=== PATIENT | male | born 1990 | race Caucasian/White ===

== ENCOUNTER 2024-08-15 01:18 | Emergency (ER) | payer OTHER, SELFPAY ==
[2024-08-15] VITALS (11 sets, daily range): BP systolic 107–131; BP diastolic 62–84
--- NOTE | 2024-08-15 01:46 | ED.GENMED ---
Addendum entered and electronically signed by Franco Pina DO 08/17/24 14:34:
30 minutes critical care time
Original Note:
History of Present Illness
<Chari Stack MD, Resident - Last Filed: 08/15/24 02:13>
General
Chief Complaint: Fainting/Passed Out
Time Seen by Provider: 08/15/24 01:32
History of Present Illness
History of Present Illness:
34-year-old male with no significant past medical history presenting with syncope. Patient notes he was lying in bed tonight when he became nauseous went to the bathroom and remembers passing out and hitting his head against the sink. Patient had
bleeding from his gingiva secondary to trauma to his teeth. Patient has a teeth retainer. Also notes pain and laceration on his chin. Denies headache, neck pain, chest pain, abdominal pain, palpitations, change in BM. Does not recall last tetanus
shot.
Past History
<Chari Stack MD, Resident - Last Filed: 08/15/24 02:13>
Past History
ED Past Medical History: None
ED Past Surgical History: None
Review of Systems
<Chari Stack MD, Resident - Last Filed: 08/15/24 02:13>
Review of Systems
Constitutional: Reports no symptoms
EENT: Reports mouth pain and other (laceration of left chin)
Respiratory: Reports no symptoms
Cardiac: Reports no symptoms
ABD/GI: Reports nausea
: Reports no symptoms
Musculoskeletal: Reports no symptoms
Skin: Reports no symptoms
Neurological: Reports no symptoms
Endocrine: Reports no symptoms
Hematologic/Lymphatic: Reports no symptoms
Psychiatric: Reports no symptoms
Phy Exam
<Chari Stack MD, Resident - Last Filed: 08/15/24 02:13>
Physical Exam
Physical Exam:
GENERAL: Alert, awake, in no apparent distress
EYE: Pupils equal and reactive.
NECK: Supple, no significant adenopathy. No midline tenderness.
ENT: o/p clr, mmm. Loosening of left lower central and lateral incisors. No active bleeding. ~2cm laceration on left chin.
CARDIAC: Regular rate and rhythm.
LUNGS: Clear breath sounds bilaterally, no acute respiratory distress, no wheezes/rales/rhonchi.
ABDOMEN: Soft, without focal tenderness, no r/g, no cvat.
NEUROLOGICAL: Alert and oriented, no focal neuro deficits.
SKIN: Warm and dry, skin intact.
MUSCULOSKELETAL: No edema, well perfused.
PSYCH: Normal and appropriate interaction.
Course
<Chari Stack MD, Resident - Last Filed: 08/15/24 02:13>
Orders/Labs/Results
Orders:
Orders
08/15/24 01:45
Electrocardiogram (*1) Urgent
Reason for Study: Syncope
EKG- Treatment ONCE
08/15/24 01:46
Tetanus/Diphth/Acelpertussis [Adacel] 0.5 ml IM .ONCE ONE
08/15/24 01:50
Complete Blood Count/With Diff Urgent
Comprehensive Metabolic Panel Urgent
0.9% Sodium Chloride 1000 ml [Nss] 1,000 ml IV BOLUS
Ketorolac [Toradol] 30 mg IV NOW STA
Ondansetron Injectable [Zofran] 4 mg IV NOW STA
08/15/24 01:51
CT Head W/o Iv Contrast Urgent
Comment:
Reason For Exam: syncope, trauma to mouth and chin
08/15/24 01:53
CT Facial Bones W/o Iv Contras Urgent
Comment:
Reason For Exam: trauma
08/15/24 01:54
CT Cervical Spine W/o Iv Contr Urgent
Comment:
Reason For Exam: trauma
Morphine Sulfate 4 mg IV NOW STA
08/15/24 02:08
Ampicillin/Sulbactam 3 G [Unasyn] 3 gm 0.9% Sodium Chloride 100 ml [Nss] 100 ml IV NOW
08/15/24 05:50
Electrocardiogram (*1) Urgent
Reason for Study: Syncope
Bedside Glucose- Treatment ONCE
EKG- Treatment ONCE
08/15/24 05:51
0.9% Sodium Chloride 500 ml [Nss] 500 ml IV BOLUS
Ondansetron Injectable [Zofran] 4 mg IV NOW STA
08/15/24 07:12
0.9% Sodium Chloride 1000 ml [Nss] 1,000 ml IV BOLUS
Abnormal Lab Results
08/15/24 08/15/24
01:50 06:07
WBC 13.6 H 10^3/uL
(4.8-10.8)
RBC 4.61 L 10^6/uL
(4.70-6.10)
MPV 11.0 H fL
(7.4-10.4)
Abs Immat Gran (auto) 0.1 H 10^3/uL
(0-0.05)
Absolute Neuts (auto) 10.8 H 10^3/uL
(1.4-6.5)
Absolute Monos (auto) 0.9 H 10^3/uL
(0.1-0.6)
Neutrophils % 79.3 H %
(42.2-75.2)
Lymphocytes % 12.6 L %
(20.5-51.1)
Glucose 131 H mg/dl
(70-99)
Total Bilirubin 2.0 H mg/dl
(0.2-1.3)
ALT 53 H U/L
(0-50)
POC Glucose 134 H mg/dl
(70-99)
08/15/24 01:50
08/15/24 01:50
Vital Signs
Initial and Last Documented VS:
Initial Vital Signs
Temp Pulse Resp BP Pulse Ox
98.1 F 81 20 107/64 99
08/15/24 01:25 08/15/24 01:25 08/15/24 01:25 08/15/24 01:25 08/15/24 01:25
Last Documented Vital Signs
Temp Pulse Resp BP Pulse Ox
98.1 F 108 7 123/70 98
08/15/24 01:25 08/15/24 07:00 08/15/24 07:00 08/15/24 07:00 08/15/24 07:10
<Franco Pina, DO - Last Filed: 08/15/24 07:16>
Orders/Labs/Results
Orders:
Orders
08/15/24 01:45
Electrocardiogram (*1) Urgent
Reason for Study: Syncope
EKG- Treatment ONCE
08/15/24 01:46
Tetanus/Diphth/Acelpertussis [Adacel] 0.5 ml IM .ONCE ONE
08/15/24 01:50
Complete Blood Count/With Diff Urgent
Comprehensive Metabolic Panel Urgent
0.9% Sodium Chloride 1000 ml [Nss] 1,000 ml IV BOLUS
Ketorolac [Toradol] 30 mg IV NOW STA
Ondansetron Injectable [Zofran] 4 mg IV NOW STA
08/15/24 01:51
CT Head W/o Iv Contrast Urgent
Comment:
Reason For Exam: syncope, trauma to mouth and chin
08/15/24 01:53
CT Facial Bones W/o Iv Contras Urgent
Comment:
Reason For Exam: trauma
08/15/24 01:54
CT Cervical Spine W/o Iv Contr Urgent
Comment:
Reason For Exam: trauma
Morphine Sulfate 4 mg IV NOW STA
08/15/24 02:08
Ampicillin/Sulbactam 3 G [Unasyn] 3 gm 0.9% Sodium Chloride 100 ml [Nss] 100 ml IV NOW
08/15/24 05:50
Electrocardiogram (*1) Urgent
Reason for Study: Syncope
Bedside Glucose- Treatment ONCE
EKG- Treatment ONCE
08/15/24 05:51
0.9% Sodium Chloride 500 ml [Nss] 500 ml IV BOLUS
Ondansetron Injectable [Zofran] 4 mg IV NOW STA
08/15/24 07:12
0.9% Sodium Chloride 1000 ml [Nss] 1,000 ml IV BOLUS
Abnormal Lab Results
08/15/24 08/15/24
01:50 06:07
WBC 13.6 H 10^3/uL
(4.8-10.8)
RBC 4.61 L 10^6/uL
(4.70-6.10)
MPV 11.0 H fL
(7.4-10.4)
Abs Immat Gran (auto) 0.1 H 10^3/uL
(0-0.05)
Absolute Neuts (auto) 10.8 H 10^3/uL
(1.4-6.5)
Absolute Monos (auto) 0.9 H 10^3/uL
(0.1-0.6)
Neutrophils % 79.3 H %
(42.2-75.2)
Lymphocytes % 12.6 L %
(20.5-51.1)
Glucose 131 H mg/dl
(70-99)
Total Bilirubin 2.0 H mg/dl
(0.2-1.3)
ALT 53 H U/L
(0-50)
POC Glucose 134 H mg/dl
(70-99)
08/15/24 01:50
08/15/24 01:50
Vital Signs
Initial and Last Documented VS:
Initial Vital Signs
Temp Pulse Resp BP Pulse Ox
98.1 F 81 20 107/64 99
08/15/24 01:25 08/15/24 01:25 08/15/24 01:25 08/15/24 01:25 08/15/24 01:25
Last Documented Vital Signs
Temp Pulse Resp BP Pulse Ox
98.1 F 108 7 123/70 98
08/15/24 01:25 08/15/24 07:00 08/15/24 07:00 08/15/24 07:00 08/15/24 07:10
Procedures
<Franco Pina DO - Last Filed: 08/15/24 07:16>
Laceration Closure
Left Lower Face:
Status of Wound: clean
Description of Wound Edges: sharp
Preparation: cleaned with saline
Anesthesia: 1% Lidocaine with epi
Revision/Debridement: routine- no revision
Wound exploration: explored to base- no FB
Type of Closure: single layer closure
Skin Closure Material: 5-0 prolene
Number of sutures: 5
Additional information:
Completed by resident under my supervision
<Chari Stack MD, Resident - Last Filed: 08/15/24 02:13>
MDM/Problems Addressed
Differential Diagnosis Includes:
Syncope (vasovagal vs hypoglycemic vs cardiac)
Mandibular fracture
MDM/Problems Addressed:
- EKG
- CBC, CMP
- Head CT
- Tetanus shot
- Pain management
- Suture
<Chari Stack MD, Resident - Last Filed: 08/15/24 02:13>
*Critical Care Note
Total Time (30-74mins, 75-104mins- exclusive of procedures): Not Applicable
<Franco Pina DO - Last Filed: 08/15/24 07:16>
Update Note
Update Note:
Update isolated facial trauma, CT noted, reviewed with patient and spouse,
5:45 AM called to room patient got up to ambulate had a second syncopal versus presyncopal event, nauseous, vomited did not strike his head will repeat his EKG and Accu-Chek, had not received any pain meds in the last few hours, this point
7 AM update reviewed previously with the daytime on-call oral surgeon at [facility] recommend transfer to trauma center did review the case with trauma attending at [facility] and facial trauma oral surgeon both have accepted the patient with those
no telemetry beds at [facility], facial trauma surgeon will build to manage patient at [facility] I did discuss with the [facility] trauma attending who accepted the patient as a level 2 trauma
ED Attending Note
<Chari Stack MD, Resident - Last Filed: 08/15/24 02:13>
-
Portions of this chart may have been created with voice recognition software.� Occasional wrong word or��sound alike� substitutions may have occurred due to the inherent limitations of voice recognition software.
<Franco Pina, DO - Last Filed: 08/15/24 07:16>
ED Attending Note
Patient seen and examined by attending physician: Yes
I performed a history and physical exam of patient and discussed management with resident, I reviewed resident's note and agree with documented findings and plan of care.: Yes
ED Attending Note:
Seen with resident examined independently 34-year-old male limited past medical history presents with nausea syncopal event struck his chin on the ground has loose 3 lower front teeth, laceration over his chin,
EKG noted, spouse ill with a similar more severe illness, plan will be labs, imaging of the head C-spine facial bones primary closure update tetanus, antibiotics
Discharge Plan
Departure
Patient Disposition: Acute Care Hospital
Date of Disposition: 08/15/24
Time of Disposition: 07:15
Patient with high blood pressure during this ER visit?: No
Condition: Good
Discharge Problem:
Syncope and collapse, Closed jaw fracture
Referrals:
NONE,* [Family Provider] -
Hospital Transfer
Other hospital: [facility]
I certify that the patient requires transfer: Yes
Discussed case with accepting physician: Trauma facial trauma
Reason for transfer: higher level of care and specialties available
Interventions
Interventions:
*Risk Screen - Suicide Last Done: 08/15/24 01:25
*General Assessment Last Done: 08/15/24 01:25
*Neglect/Abuse Screening Last Done: 08/15/24 01:25
ED- Fall Risk Assessment Last Done: 08/15/24 07:10
*ED COVID-19 Vaccine History Last Done: 08/15/24 01:25
ED- Cardiac Assessment Last Done: 08/15/24 07:10
ED- Neurological Assessment Last Done: 08/15/24 07:10
Discharge Date and Time
Print Language: BENINESE
[2024-08-15] MEDS: NSS 1000 IV ×2 (01:57→07:26)
[2024-08-15 01:58] LABS: % Basophils 0.2 % (0-2); % Eosinophils 0.7 % (0-6); % Immature Granulocytes 0.4 % (0-0.5); % Lymphocytes 12.6 % (20.5-51.1); % Monocytes 6.8 % (1.7-9.3); % Neutrophils 79.3 % (42.2-75.2); Absolute Eosinophils 0.1 10^3/uL (0-0.7); Absolute Immature Granulocytes 0.1 10^3/uL (0-0.05); Absolute Lymphocytes 1.7 10^3/uL (1.2-3.4); Absolute Monocytes 0.9 10^3/uL (0.1-0.6); Absolute Neutrophils 10.8 10^3/uL (1.4-6.5); Hematocrit 42.4 % (39.0-52.0); Hemoglobin 14.2 g/dL (13.0-18.0); Mean Corp Hgb Conc. 33.5 g/dL (33.0-37.0); Mean Corpuscular Hgb 30.8 pg (27.0-31.0); Nucleated Red Blood Cells % 0 % (-); Platelet Count 234 10^3/uL (130-400); Red Blood Cell Count 4.61 10^6/uL (4.70-6.10); Red Cell Dist. Width 11.8 % (11.5-14.5); White Blood Cell Count 13.6 10^3/uL (4.8-10.8)
[2024-08-15] MEDS: ZOFRAN 4 MG IV ×2 (01:58→06:09)
[2024-08-15] MEDS: TORADOL 30 MG IV (01:58)
[2024-08-15] MEDS: ADACEL 0.5 ML IM (02:01)
[2024-08-15 02:24] LABS: ALT (SGPT) 53 U/L (0-50); AST (SGOT) 36 U/L (17-59); Albumin 4.6 g/dl (3.5-5.0); Alkaline Phosphatase 58 U/L (38-126); Blood Urea Nitrogen 17 mg/dl (9-20); Calcium 9.1 mg/dl (8.4-10.2); Carbon Dioxide 29 mmol/L (22-30); Chloride 101 mmol/L (98-107); Glucose 131 mg/dl (70-99); Sodium 140 mmol/L (135-145); Total Protein 6.7 g/dl (6.3-8.2); eGFR > 60.00
[2024-08-15] MEDS: UNASYN IV (02:38)
[2024-08-15 06:09] LABS: Glucose - Point of Care 134 mg/dl (70-99)
[2024-08-15] MEDS: NSS 500 IV (06:09)
--- NOTE | 2024-08-15 06:24 | ED TECH ---
Addendum entered by Estela Marquez 08/15/24 06:32:
and hunched over. I insisted that he sit back down and allow me to bring him a urinal, the PT became argumentative and tried to stand again only this time he barely made it off the bed. I told the PT I could no longer allow his to stand as I could
feel the temperature change in his skin and see his color changing. The PT threw his hands up and flared them around agressively stating, 'I JUST WANT TO GET OUT OF THIS BED, I NEED TO GET OUT OF THIS BED. I NEED THE TRASHCAN NOW' -upon his
tilting the large trancan near the bed, the PT retched and then his arms and upper body went limp into the trash can and he fell backwards all in one motion. There was no head strike or facial strike PT safely assisted during the fall. This PCT
yelled for HELP as I had my arms around the PT and kept him secure on the bed. RN Ney, was first to make it in the room and we got him into the proper position on the bed.
Original Note:
This PCT answered the PTs call richey, PT told me he needed to use the bathroom and was asking about pain meds. I was concerned about the PT getting up as he had come in for the syncopal and head strike by squad. His assured me that she and the
RN had gotten the PT up and he was able to ambulate to the bathroom with no issue. I advised the patent I was going to sit him up in the bed first, and then have him swing his legs and dangle his legs for a few moments, before letting him stand up.
Sitting up in the bed went fine, swinging his legs went OK, and then he tried to press his feet into the ground like he wanted to jump right up. I asked him to let me guide him up first, with my arm wrapped around his and he was only able to stand
to bent bent knees,
--- NOTE | 2024-08-15 06:25 | EDRN ---
PCT called out, patient had stood up and didn't feel well and passed out, this RN entered room along with several others and provider, patient awake and asking what happened, he was cool and clammy, vital signs were completed and were stable, EKG
completed, blood sugar checked as well and fluids hung. Patient stable, Dr. Pina speaking with patient about being transferred out to a trauma hospital.
== END 2024-08-15 09:36 | disposition short-term general hospital (02) ==
LOC: EMR 01:18
PROVIDERS: EMERGENCY PHYSICIAN Emergency Medicine
DX: S01.81XA Laceration without foreign body of other part of head, initial encounter (principal); S09.93XA Unspecified injury of face, initial encounter; W22.03XA Walked into furniture, initial encounter
CPT/HCPCS: 99284; 96365; 96375; 96376; 96372; 96361; 70450; 70486; 72125; 80053; 82962; 85025; 90715; 93005